=== PATIENT | male | born 1970 | race Hispanic/Latino ===

== ENCOUNTER 2020-04-30 15:14 | Inpatient (IN) | payer OTHER ==
[~2020-04-30] VITALS: Ht 165.1 cm; Wt 77.6 kg
[2020-04-30] MEDS ORDERED: LACTULOSE 20 GM/30 ML UDCUP PO PRN (16:00)
[2020-04-30] MEDS ORDERED: MAG/ALUM/SIMETH 30 ML UDCUP PO PRN (16:00)
[2020-04-30] MEDS ORDERED: ONDANSETRON 4MG INJ IVP PRN (16:00)
[2020-04-30] MEDS: ZOSYN 3.375GM+NS 50ML 50 ML IV SCH (16:00)
[2020-04-30] MEDS ORDERED: VANCOMYCIN PROTOCOL PER PHARMACY IV SCH (16:00)
[2020-04-30] MEDS ORDERED: GUAIFENESIN-DM 200/20 MG 10 ML PO PRN (16:00)
[2020-04-30 16:10] LABS: BASOPHILS % (AUTO) 0.2 % (0.0-5.0); EOSINOPHILS % (AUTO) 0.8 % (0.0-8.0); HEMATOCRIT 31.6 % (42-54); LYMPHOCYTES % (AUTO) 2.2 % (21.0-51.0); MEAN CORPUSCULAR HEMOGLOBIN 30.3 pg (27.0-33.0); MEAN CORPUSCULAR HGB CONC 33.5 g/dL (32.0-36.0); MEAN CORPUSCULAR VOLUME 90.3 fL (79-99); MONOCYTES % (AUTO) 3.8 % (3.0-13.0); NEUTROPHILS % (AUTO) 92.5 % (40.0-77.0); PLATELET COUNT (AUTO) 181 K/uL (130-400); RED CELL DISTRIBUTION WIDTH 13.1 % (11.0-15.5); WHITE BLOOD COUNT (AUTO) 21.1 K/uL (4.8-10.8)
[2020-04-30] MEDS ORDERED: DEXTROSE 50%-WATER 50 ML DISP.SYRIN IV PRN (16:15)
[2020-04-30] MEDS ORDERED: GLUCAGON 1MG KIT 1 MG ML IM PRN (16:15)
[2020-04-30] MEDS ORDERED: ZOSYN 3.375GM+NS 50ML 50 ML IV ONE (16:28)
[2020-04-30] MEDS ORDERED: VANCOMYCIN 1G 1.5 GM in 0.9% NACL 250ML 250 ML IV ONE (16:30)
[2020-04-30] MEDS: INSULIN HUMULIN R 100 UNIT/ML 3ML SQ SCH ×2 (16:30→21:00)
[2020-04-30 16:39] LABS: ALBUMIN 2.6 g/dL (3.5-5.0); BILIRUBIN,TOTAL 0.9 mg/dL (0.2-1.0); CREATININE 4.2 mg/dL (0.5-1.5); POTASSIUM 3.6 mmol/L (3.5-5.1); TOTAL PROTEIN, SERUM 8.4 g/dL (6.0-8.3)
[2020-04-30] MEDS ORDERED: ACETAMINOPHEN 325 MG TAB ONE (18:35)
[2020-04-30] MEDS ORDERED: HEPARIN 5,000 UNIT VIAL ONE (20:05)
[2020-04-30] MEDS ORDERED: FAMOTIDINE 20MG TAB ONE (20:05)
[2020-04-30] MEDS ORDERED: HEPARIN 5,000 UNIT VIAL SQ SCH (21:00)
[2020-04-30] MEDS: FAMOTIDINE 20MG TAB PO SCH (21:00)
[2020-04-30 22:35] VITALS: BP 117/58
[2020-04-30] MEDS ORDERED: TEMA30CA PO (22:50)
[2020-04-30] MEDS ORDERED: METO-408 PO (22:50)
[2020-04-30] MEDS ORDERED: ROSU20TA31 PO (22:50)
[2020-04-30] MEDS ORDERED: GABA-533 PO (22:50)
[2020-04-30] MEDS ORDERED: AEC81 PO (22:50)
[2020-04-30] MEDS ORDERED: CHOL500045 PO (22:50)
[2020-04-30] MEDS ORDERED: CLOP75TA32 PO (22:50)
[2020-04-30] MEDS ORDERED: FURO80TA3 PO (22:50)
[2020-04-30] MEDS ORDERED: HYDR-4153 PO (22:50)
[2020-04-30] MEDS ORDERED: LEVO25CA4 PO (22:50)
[2020-05-01 04:09] VITALS: BP 146/62
[2020-05-01] MEDS: ZOSYN 3.375GM+NS 50ML 50 ML IV SCH ×2 (04:42→17:30)
[2020-05-01] MEDS: INSULIN HUMULIN R 100 UNIT/ML 3ML SQ SCH ×4 (06:40→23:30)
[2020-05-01] MEDS: HEPARIN 5,000 UNIT VIAL SQ SCH ×2 (09:57→21:08)
[2020-05-01 11:51] VITALS: BP 162/75
[2020-05-01] MEDS ORDERED: HEPARIN 5,000 UNIT VIAL IJ PRN (15:15)
[2020-05-01] MEDS ORDERED: NITROGLYCERIN 0.4 MG SL TAB SL PRN (15:15)
[2020-05-01] MEDS ORDERED: ACETAMINOPHEN 325 MG TAB PO PRN (15:15)
[2020-05-01] MEDS ORDERED: ALBUMIN FOR BP SUPPORT MISC PRN (15:15)
[2020-05-01] MEDS ORDERED: LIDOCAINE HCL-MPF 1% 2ML VIAL IJ PRN (15:15)
[2020-05-01] MEDS ORDERED: 0.9%NACL 1000ML IV PRN (15:15)
[2020-05-01] MEDS ORDERED: 0.9%NACL 1000ML 1,000 ML IV PRN (15:15)
[2020-05-01 16:19] VITALS: BP 161/87
[2020-05-01] MEDS: ASPIRIN 81 MG EC TAB PO SCH (17:30)
[2020-05-01] MEDS: GABAPENTIN 300 MG CAPSULE PO SCH ×2 (17:32→20:59)
[2020-05-01] MEDS ORDERED: VANCOMYCIN 1G 1.5 GM in 0.9% NACL 250ML 250 ML IV SCH (19:30)
[2020-05-01 19:33] VITALS: BP 142/70
[2020-05-01] MEDS ORDERED: COMPOUND IV REFRIGERATED 1 EACH IVSOLN MISC PRN (19:45)
[2020-05-01] MEDS: FAMOTIDINE 20MG TAB PO SCH (20:59)
[2020-05-01] MEDS: CLOPIDOGREL 75MG TAB PO SCH (20:59)
[2020-05-01] MEDS: GABAPENTIN 100 MG CAPSULE PO SCH (20:59)
[2020-05-01] MEDS: METOPROLOL SUCCINATE 50 MG TAB.SR.24H PO SCH (21:00)
[2020-05-01] MEDS: HYDRALAZINE 25MG TABLET PO SCH (21:00)
[2020-05-01] MEDS: ATORVASTATIN 40 MG TABLET PO SCH (21:00)
[2020-05-01] MEDS: ZOLPIDEM TARTRATE 5 MG TAB PO PRN (23:27)
[2020-05-02] VITALS: BP 119/68
[2020-05-02 03:46] LABS: BASOPHILS % (AUTO) 0.6 % (0.0-5.0); EOSINOPHILS % (AUTO) 1.5 % (0.0-8.0); HEMATOCRIT 28.7 % (42-54); LYMPHOCYTES % (AUTO) 16.3 % (21.0-51.0); MEAN CORPUSCULAR HEMOGLOBIN 29.8 pg (27.0-33.0); MEAN CORPUSCULAR HGB CONC 33.1 g/dL (32.0-36.0); MONOCYTES % (AUTO) 11.1 % (3.0-13.0); NEUTROPHILS % (AUTO) 70.2 % (40.0-77.0); PLATELET COUNT (AUTO) 181 K/uL (130-400); RED BLOOD CELL COUNT(AUTO) 3.19 MIL/uL (4.50-6.20); RED CELL DISTRIBUTION WIDTH 12.9 % (11.0-15.5); WHITE BLOOD COUNT (AUTO) 9.3 K/uL (4.8-10.8)
[2020-05-02] MEDS: ZOSYN 3.375GM+NS 50ML 50 ML IV SCH ×2 (03:48→16:37)
[2020-05-02 04:00] VITALS: BP 127/64
[2020-05-02 04:11] LABS: ALBUMIN 2.1 g/dL (3.5-5.0); BILIRUBIN,TOTAL 0.5 mg/dL (0.2-1.0); CREATININE 4.2 mg/dL (0.5-1.5); TOTAL PROTEIN, SERUM 7.4 g/dL (6.0-8.3)
[2020-05-02 04:25] LABS: POTASSIUM 2.9 mmol/L (3.5-5.1)
[2020-05-02] MEDS ORDERED: KCL 20 MEQ ERTAB PO SCH ×2 (05:45→11:30)
[2020-05-02] MEDS: LEVOTHYROXINE 25 MCG TABLET PO SCH (06:39)
[2020-05-02] MEDS: INSULIN HUMULIN R 100 UNIT/ML 3ML SQ SCH ×4 (06:40→22:14)
[2020-05-02 08:00] VITALS: BP 132/70
[2020-05-02] MEDS: GABAPENTIN 100 MG CAPSULE PO SCH ×3 (09:00→21:34)
[2020-05-02] MEDS: VITAMIN D3 PO SCH (09:00)
[2020-05-02] MEDS: HEPARIN 5,000 UNIT VIAL SQ SCH (09:00)
[2020-05-02] MEDS: ASPIRIN 81 MG EC TAB PO SCH (09:00)
[2020-05-02] MEDS: GABAPENTIN 300 MG CAPSULE PO SCH ×3 (09:00→21:35)
[2020-05-02] MEDS: METOPROLOL SUCCINATE 50 MG TAB.SR.24H PO SCH ×2 (09:00→21:35)
[2020-05-02] MEDS ORDERED: DiphenhydrAMINE HCL 50 MG/ML VIAL ONE (09:44)
[2020-05-02] MEDS ORDERED: FENTANYL CITRATE PF 50 MCG/1 ML 2ML VIAL ONE (09:45)
[2020-05-02] MEDS ORDERED: MIDAZOLAM HCL 1 MG/ML 2ML VIAL ONE (09:45)
[2020-05-02] MEDS ORDERED: HEPARIN 10,000 UNIT/10ML (1,000 UNIT/ML) VIAL ONE (09:45)
[2020-05-02] MEDS ORDERED: NITROGLYCERIN 2 MG VIAL IV ONE (09:45)
[2020-05-02] MEDS ORDERED: LIDOCAINE HCL 400MG/20ML VIAL ONE (09:45)
[2020-05-02] MEDS ORDERED: IODIXANOL 320 MG/ML 100 ML VIAL ONE (09:46)
[2020-05-02 10:16] LABS: INR 1.08 (0.85-1.15); PROTHROMBIN TIME 11.7 SEC (9.6-11.6)
[2020-05-02 10:18] LABS: PARTIAL THROMBOPLASTIN TIME 27.2 SEC (26.3-35.5)
[2020-05-02] MEDS ORDERED: KCL 20 MEQ ERTAB PO ONE (10:33)
[2020-05-02] MEDS ORDERED: DiphenhydrAMINE HCL 50 MG/ML VIAL IV SCH (10:40)
[2020-05-02] MEDS ORDERED: HEPARIN 1,000 UNIT VIAL ONE ×2 (10:49→14:23)
[2020-05-02 11:12] LABS: HEPATITIS Bs ANTIGEN SCREEN P Negative (Negative)
[2020-05-02] MEDS ORDERED: TICAGRELOR 90 MG TABLET ONE (11:38)
[2020-05-02] MEDS ORDERED: ASPIRIN 325MG EC TAB PO ONE (11:39)
[2020-05-02] MEDS ORDERED: 0.9%NACL 1000ML 1,000 ML IV SCH (12:00)
[2020-05-02] MEDS ORDERED: LIDOCAINE HCL 1% MDV 50ML VIAL ONE (14:23)
[2020-05-02 16:18] VITALS: BP 155/81
[2020-05-02 19:37] LABS: ALBUMIN 2.1 g/dL (3.5-5.0); CREATININE 4.7 mg/dL (0.5-1.5); PHOSPHORUS 4.7 mg/dL (2.5-4.9); POTASSIUM 3.7 mmol/L (3.5-5.1)
[2020-05-02 20:00] VITALS: BP 127/66
[2020-05-02] MEDS: FAMOTIDINE 20MG TAB PO SCH (21:34)
[2020-05-02] MEDS: ATORVASTATIN 40 MG TABLET PO SCH (21:34)
[2020-05-02] MEDS: CLOPIDOGREL 75MG TAB PO SCH (21:35)
[2020-05-02] MEDS: HYDRALAZINE 25MG TABLET PO SCH (21:35)
[2020-05-02] MEDS: ZOLPIDEM TARTRATE 5 MG TAB PO PRN (21:48)
[2020-05-02 23:48] VITALS: BP 169/81
[2020-05-03 04:00] VITALS: BP 143/68
[2020-05-03 05:12] LABS: BASOPHILS % (AUTO) 0.7 % (0.0-5.0); EOSINOPHILS % (AUTO) 2.8 % (0.0-8.0); HEMATOCRIT 31.4 % (42-54); LYMPHOCYTES % (AUTO) 17.7 % (21.0-51.0); MEAN CORPUSCULAR HEMOGLOBIN 30.1 pg (27.0-33.0); MEAN CORPUSCULAR HGB CONC 32.8 g/dL (32.0-36.0); MEAN CORPUSCULAR VOLUME 91.8 fL (79-99); MONOCYTES % (AUTO) 10.8 % (3.0-13.0); NEUTROPHILS % (AUTO) 67.7 % (40.0-77.0); PLATELET COUNT (AUTO) 218 K/uL (130-400); RED BLOOD CELL COUNT(AUTO) 3.42 MIL/uL (4.50-6.20); WHITE BLOOD COUNT (AUTO) 9.6 K/uL (4.8-10.8)
[2020-05-03 05:45] LABS: ALBUMIN 2.3 g/dL (3.5-5.0); BILIRUBIN,TOTAL 0.5 mg/dL (0.2-1.0); CREATININE 5.1 mg/dL (0.5-1.5); TOTAL PROTEIN, SERUM 8.1 g/dL (6.0-8.3)
[2020-05-03] MEDS: ZOSYN 3.375GM+NS 50ML 50 ML IV SCH ×2 (05:45→16:04)
[2020-05-03] MEDS: LEVOTHYROXINE 25 MCG TABLET PO SCH (05:45)
[2020-05-03] MEDS: INSULIN HUMULIN R 100 UNIT/ML 3ML SQ SCH ×4 (06:24→20:47)
[2020-05-03 08:00] VITALS: BP 142/68
[2020-05-03] MEDS: VITAMIN D3 PO SCH (09:00)
[2020-05-03] MEDS: GABAPENTIN 300 MG CAPSULE PO SCH ×3 (10:02→20:49)
[2020-05-03] MEDS: ASPIRIN 81 MG EC TAB PO SCH (10:02)
[2020-05-03] MEDS: METOPROLOL SUCCINATE 50 MG TAB.SR.24H PO SCH ×2 (10:02→20:49)
[2020-05-03] MEDS: GABAPENTIN 100 MG CAPSULE PO SCH ×3 (10:02→20:52)
[2020-05-03 11:52] VITALS: BP 147/68
[2020-05-03 16:51] VITALS: BP 122/64
[2020-05-03 19:42] VITALS: BP 128/70
[2020-05-03] MEDS: ATORVASTATIN 40 MG TABLET PO SCH (20:49)
[2020-05-03] MEDS: CLOPIDOGREL 75MG TAB PO SCH (20:49)
[2020-05-03] MEDS: FAMOTIDINE 20MG TAB PO SCH (20:49)
[2020-05-03] MEDS: HYDRALAZINE 25MG TABLET PO SCH (20:50)
[2020-05-03] MEDS: ZOLPIDEM TARTRATE 5 MG TAB PO PRN (20:52)
[2020-05-03] MEDS: VANCOMYCIN 1G 1.25 GM in 0.9% NACL 250ML 250 ML IV SCH (20:53)
[2020-05-03 23:43] VITALS: BP 124/47
[2020-05-04] VITALS (19 sets, daily range): BP systolic 106–161; BP diastolic 45–79
[2020-05-04] MEDS: ZOSYN 3.375GM+NS 50ML 50 ML IV SCH ×2 (04:11→16:24)
[2020-05-04] MEDS: INSULIN HUMULIN R 100 UNIT/ML 3ML SQ SCH ×4 (05:39→20:48)
[2020-05-04] MEDS: LEVOTHYROXINE 25 MCG TABLET PO SCH (05:59)
[2020-05-04 06:02] LABS: BASOPHILS % (AUTO) 0.5 % (0.0-5.0); EOSINOPHILS % (AUTO) 3.6 % (0.0-8.0); HEMATOCRIT 26.5 % (42-54); LYMPHOCYTES % (AUTO) 19.6 % (21.0-51.0); MEAN CORPUSCULAR HGB CONC 32.8 g/dL (32.0-36.0); MEAN CORPUSCULAR VOLUME 91.4 fL (79-99); MONOCYTES % (AUTO) 8.7 % (3.0-13.0); NEUTROPHILS % (AUTO) 67.3 % (40.0-77.0); PLATELET COUNT (AUTO) 175 K/uL (130-400); RED CELL DISTRIBUTION WIDTH 12.8 % (11.0-15.5); WHITE BLOOD COUNT (AUTO) 7.8 K/uL (4.8-10.8)
[2020-05-04 06:19] LABS: BILIRUBIN,TOTAL 0.5 mg/dL (0.2-1.0); CREATININE 4.5 mg/dL (0.5-1.5); POTASSIUM 3.3 mmol/L (3.5-5.1)
[2020-05-04] MEDS ORDERED: MIDAZOLAM HCL 1 MG/ML 2ML VIAL ONE (07:26)
[2020-05-04] MEDS ORDERED: FENTANYL CITRATE PF 50 MCG/1 ML 2ML VIAL ONE (07:26)
[2020-05-04] MEDS ORDERED: BUPIVACAINE/PF 0.5% 30ML VIAL ONE (07:29)
[2020-05-04] MEDS ORDERED: LIDOCAINE HCL 1% 20 ML VIAL ONE (07:29)
[2020-05-04] MEDS ORDERED: KETAMINE 50MG/ML SYRINGE 50 MG/ML DISP.SYRIN IV ONE (07:30)
[2020-05-04] MEDS: VITAMIN D3 PO SCH (09:00)
[2020-05-04] MEDS: GABAPENTIN 300 MG CAPSULE PO SCH ×3 (10:20→20:44)
[2020-05-04] MEDS: METOPROLOL SUCCINATE 50 MG TAB.SR.24H PO SCH ×2 (10:20→20:45)
[2020-05-04] MEDS: GABAPENTIN 100 MG CAPSULE PO SCH ×3 (10:21→20:45)
[2020-05-04] MEDS: ASPIRIN 81 MG EC TAB PO SCH (10:21)
[2020-05-04] MEDS: CLOPIDOGREL 75MG TAB PO SCH (20:44)
[2020-05-04] MEDS: HYDRALAZINE 25MG TABLET PO SCH (20:45)
[2020-05-04] MEDS: ATORVASTATIN 40 MG TABLET PO SCH (20:45)
[2020-05-04] MEDS: FAMOTIDINE 20MG TAB PO SCH (20:45)
[2020-05-04] MEDS: ZOLPIDEM TARTRATE 5 MG TAB PO PRN (20:55)
[2020-05-04] MEDS ORDERED: MORPHINE 2 MG SYG IVP PRN (22:45)
[2020-05-04] MEDS ORDERED: HYDROMORPHONE 1 MG INJ IVP PRN (22:45)
[2020-05-05] MEDS: ZOSYN 3.375GM+NS 50ML 50 ML IV SCH ×2 (03:56→15:24)
[2020-05-05 04:21] VITALS: BP 133/63
[2020-05-05] MEDS: INSULIN HUMULIN R 100 UNIT/ML 3ML SQ SCH ×4 (05:58→20:49)
[2020-05-05] MEDS: LEVOTHYROXINE 25 MCG TABLET PO SCH (06:45)
[2020-05-05 07:50] VITALS: BP 127/62
[2020-05-05] MEDS: ASPIRIN 81 MG EC TAB PO SCH (07:56)
[2020-05-05] MEDS: METOPROLOL SUCCINATE 50 MG TAB.SR.24H PO SCH ×2 (07:56→20:45)
[2020-05-05] MEDS: GABAPENTIN 100 MG CAPSULE PO SCH ×3 (07:57→20:40)
[2020-05-05] MEDS: GABAPENTIN 300 MG CAPSULE PO SCH ×3 (07:57→20:39)
[2020-05-05] MEDS: VITAMIN D3 PO SCH (07:58)
[2020-05-05 12:07] VITALS: BP 153/72
[2020-05-05 16:43] VITALS: BP 162/69
[2020-05-05 20:20] VITALS: BP 144/63
[2020-05-05] MEDS: VANCOMYCIN 1G 1.25 GM in 0.9% NACL 250ML 250 ML IV SCH (20:39)
[2020-05-05] MEDS: HYDRALAZINE 25MG TABLET PO SCH (20:40)
[2020-05-05] MEDS: ACETAMINOPHEN 325 MG TAB PO PRN (20:44)
[2020-05-05] MEDS: CLOPIDOGREL 75MG TAB PO SCH (20:44)
[2020-05-05] MEDS: FAMOTIDINE 20MG TAB PO SCH (20:45)
[2020-05-05] MEDS ORDERED: POTASSIUM CHLORIDE 10% ELIXIR 20 MEQ/15 ML UDCUP PO PRN (20:45)
[2020-05-05] MEDS: ATORVASTATIN 40 MG TABLET PO SCH (20:45)
[2020-05-05] MEDS ORDERED: POTASSIUM CHLORIDE 20MEQ/100ML 100 ML IV PRN ×2 (20:45)
[2020-05-05] MEDS: ZOLPIDEM TARTRATE 5 MG TAB PO PRN (21:01)
[2020-05-05 23:46] VITALS: BP 112/61
[2020-05-06] MEDS: KCL 20 MEQ ERTAB PO PRN ×2 (00:31→02:39)
[2020-05-06 03:57] VITALS: BP 148/78
[2020-05-06] MEDS: ZOSYN 3.375GM+NS 50ML 50 ML IV SCH ×2 (05:40→15:19)
[2020-05-06] MEDS: LEVOTHYROXINE 25 MCG TABLET PO SCH (05:47)
[2020-05-06] MEDS: INSULIN HUMULIN R 100 UNIT/ML 3ML SQ SCH ×4 (05:50→20:43)
[2020-05-06 08:25] VITALS: BP 139/79
[2020-05-06] MEDS: METOPROLOL SUCCINATE 50 MG TAB.SR.24H PO SCH ×2 (09:00→20:34)
[2020-05-06] MEDS: GABAPENTIN 100 MG CAPSULE PO SCH ×3 (09:00→20:33)
[2020-05-06] MEDS: GABAPENTIN 300 MG CAPSULE PO SCH ×3 (09:00→20:33)
[2020-05-06] MEDS: VITAMIN D3 PO SCH (09:00)
[2020-05-06] MEDS: ASPIRIN 81 MG EC TAB PO SCH (09:00)
[2020-05-06 12:03] VITALS: BP 127/73
[2020-05-06 16:57] VITALS: BP 132/81
[2020-05-06 20:00] VITALS: BP 137/66
[2020-05-06] MEDS: ATORVASTATIN 40 MG TABLET PO SCH (20:33)
[2020-05-06] MEDS: HYDRALAZINE 25MG TABLET PO SCH (20:33)
[2020-05-06] MEDS: FAMOTIDINE 20MG TAB PO SCH (20:34)
[2020-05-06] MEDS: CLOPIDOGREL 75MG TAB PO SCH (20:34)
[2020-05-06] MEDS: ZOLPIDEM TARTRATE 5 MG TAB PO PRN (20:37)
[2020-05-07 00:04] VITALS: BP 125/58
[2020-05-07 04:00] VITALS: BP 130/62
[2020-05-07] MEDS: LEVOTHYROXINE 25 MCG TABLET PO SCH (05:37)
[2020-05-07] MEDS: ZOSYN 3.375GM+NS 50ML 50 ML IV SCH ×2 (05:37→15:02)
[2020-05-07] MEDS: INSULIN HUMULIN R 100 UNIT/ML 3ML SQ SCH ×4 (07:30→21:22)
[2020-05-07] MEDS: VITAMIN D3 PO SCH (09:00)
[2020-05-07 09:03] VITALS: BP 139/63
[2020-05-07] MEDS: ASPIRIN 81 MG EC TAB PO SCH (10:15)
[2020-05-07] MEDS: GABAPENTIN 300 MG CAPSULE PO SCH ×3 (10:15→21:07)
[2020-05-07] MEDS: METOPROLOL SUCCINATE 50 MG TAB.SR.24H PO SCH ×2 (10:16→21:06)
[2020-05-07] MEDS: GABAPENTIN 100 MG CAPSULE PO SCH ×3 (10:16→21:07)
[2020-05-07 12:15] VITALS: BP 142/64
[2020-05-07] MEDS: ACETAMINOPHEN 325 MG TAB PO PRN (16:17)
[2020-05-07 17:16] VITALS: BP 158/71
[2020-05-07 20:00] VITALS: BP 145/63
[2020-05-07] MEDS: ZOLPIDEM TARTRATE 5 MG TAB PO PRN (21:06)
[2020-05-07] MEDS: FAMOTIDINE 20MG TAB PO SCH (21:07)
[2020-05-07] MEDS: CLOPIDOGREL 75MG TAB PO SCH (21:07)
[2020-05-07] MEDS: ATORVASTATIN 40 MG TABLET PO SCH (21:07)
[2020-05-07] MEDS: HYDRALAZINE 25MG TABLET PO SCH (21:07)
[2020-05-07] MEDS: VANCOMYCIN 1G 1.25 GM in 0.9% NACL 250ML 250 ML IV SCH (21:08)
[2020-05-08] VITALS: BP 149/59
[2020-05-08 04:00] VITALS: BP 127/64
[2020-05-08] MEDS: ZOSYN 3.375GM+NS 50ML 50 ML IV SCH ×2 (06:29→15:11)
[2020-05-08] MEDS: LEVOTHYROXINE 25 MCG TABLET PO SCH (06:29)
[2020-05-08 06:49] LABS: BASOPHILS % (AUTO) 0.4 % (0.0-5.0); EOSINOPHILS % (AUTO) 4.6 % (0.0-8.0); HEMATOCRIT 23.1 % (42-54); LYMPHOCYTES % (AUTO) 18.6 % (21.0-51.0); MEAN CORPUSCULAR HEMOGLOBIN 29.2 pg (27.0-33.0); MEAN CORPUSCULAR VOLUME 91.3 fL (79-99); MONOCYTES % (AUTO) 6.7 % (3.0-13.0); NEUTROPHILS % (AUTO) 69.2 % (40.0-77.0); PLATELET COUNT (AUTO) 204 K/uL (130-400); RED BLOOD CELL COUNT(AUTO) 2.53 MIL/uL (4.50-6.20); RED CELL DISTRIBUTION WIDTH 13.6 % (11.0-15.5); WHITE BLOOD COUNT (AUTO) 8.3 K/uL (4.8-10.8)
[2020-05-08 06:58] LABS: CREATININE 4.3 mg/dL (0.5-1.5); POTASSIUM 3.4 mmol/L (3.5-5.1)
[2020-05-08] MEDS: INSULIN HUMULIN R 100 UNIT/ML 3ML SQ SCH ×4 (07:30→21:06)
[2020-05-08 07:58] VITALS: BP 137/66
[2020-05-08] MEDS: ASPIRIN 81 MG EC TAB PO SCH (09:00)
[2020-05-08] MEDS: VITAMIN D3 PO SCH (09:00)
[2020-05-08] MEDS: GABAPENTIN 300 MG CAPSULE PO SCH ×3 (09:00→21:01)
[2020-05-08] MEDS: METOPROLOL SUCCINATE 50 MG TAB.SR.24H PO SCH ×2 (09:00→21:02)
[2020-05-08] MEDS: GABAPENTIN 100 MG CAPSULE PO SCH ×3 (09:00→21:01)
[2020-05-08 11:07] VITALS: BP 112/62
[2020-05-08 16:24] VITALS: BP 149/75
[2020-05-08 19:54] VITALS: BP 150/64
[2020-05-08] MEDS: FAMOTIDINE 20MG TAB PO SCH (21:01)
[2020-05-08] MEDS: HYDRALAZINE 25MG TABLET PO SCH (21:01)
[2020-05-08] MEDS: CLOPIDOGREL 75MG TAB PO SCH (21:02)
[2020-05-08] MEDS: ZOLPIDEM TARTRATE 5 MG TAB PO PRN (21:02)
[2020-05-08] MEDS: ATORVASTATIN 40 MG TABLET PO SCH (21:10)
[2020-05-09] VITALS (7 sets, daily range): BP systolic 105–140; BP diastolic 58–73
[2020-05-09] MEDS: ZOSYN 3.375GM+NS 50ML 50 ML IV SCH ×2 (03:51→15:08)
[2020-05-09] MEDS: LEVOTHYROXINE 25 MCG TABLET PO SCH ×2 (03:51→20:47)
[2020-05-09] MEDS: INSULIN HUMULIN R 100 UNIT/ML 3ML SQ SCH ×4 (06:06→21:02)
[2020-05-09] MEDS: GABAPENTIN 300 MG CAPSULE PO SCH ×3 (08:59→20:43)
[2020-05-09] MEDS: METOPROLOL SUCCINATE 50 MG TAB.SR.24H PO SCH ×2 (09:00→20:44)
[2020-05-09] MEDS: GABAPENTIN 100 MG CAPSULE PO SCH ×3 (09:00→20:43)
[2020-05-09] MEDS: ASPIRIN 81 MG EC TAB PO SCH (09:00)
[2020-05-09] MEDS: VITAMIN D3 PO SCH (09:00)
[2020-05-09] MEDS: ATORVASTATIN 40 MG TABLET PO SCH (20:43)
[2020-05-09] MEDS: CLOPIDOGREL 75MG TAB PO SCH (20:43)
[2020-05-09] MEDS: HYDRALAZINE 25MG TABLET PO SCH (20:43)
[2020-05-09] MEDS: FAMOTIDINE 20MG TAB PO SCH (20:44)
[2020-05-09] MEDS: ZOLPIDEM TARTRATE 5 MG TAB PO PRN (20:44)
[2020-05-10] VITALS (11 sets, daily range): BP systolic 125–163; BP diastolic 45–108
[2020-05-10] MEDS: ZOSYN 3.375GM+NS 50ML 50 ML IV SCH ×2 (04:02→17:14)
[2020-05-10 05:40] LABS: HEMATOCRIT 22.8 % (42-54); MEAN CORPUSCULAR HEMOGLOBIN 29.1 pg (27.0-33.0); MEAN CORPUSCULAR HGB CONC 31.6 g/dL (32.0-36.0); MEAN CORPUSCULAR VOLUME 92.3 fL (79-99); RED BLOOD CELL COUNT(AUTO) 2.47 MIL/uL (4.50-6.20); RED CELL DISTRIBUTION WIDTH 13.4 % (11.0-15.5); WHITE BLOOD COUNT (AUTO) 7.3 K/uL (4.8-10.8)
[2020-05-10] MEDS: INSULIN HUMULIN R 100 UNIT/ML 3ML SQ SCH ×4 (06:05→20:16)
[2020-05-10 06:15] LABS: CREATININE 3.6 mg/dL (0.5-1.5); POTASSIUM 3.7 mmol/L (3.5-5.1)
[2020-05-10] MEDS: METOPROLOL SUCCINATE 50 MG TAB.SR.24H PO SCH ×2 (08:41→19:58)
[2020-05-10] MEDS: GABAPENTIN 100 MG CAPSULE PO SCH ×3 (08:41→19:58)
[2020-05-10] MEDS: GABAPENTIN 300 MG CAPSULE PO SCH ×3 (08:42→19:58)
[2020-05-10] MEDS: LEVOTHYROXINE 25 MCG TABLET PO SCH (08:46)
[2020-05-10] MEDS: ASPIRIN 81 MG EC TAB PO SCH (09:00)
[2020-05-10] MEDS: VITAMIN D3 PO SCH (09:00)
[2020-05-10] MEDS ORDERED: HEPARIN 1,000 UNIT VIAL ONE (12:09)
[2020-05-10] MEDS ORDERED: LIDOCAINE HCL 1% MDV 50ML VIAL ONE (12:10)
[2020-05-10] MEDS: VANCOMYCIN 1G 1.25 GM in 0.9% NACL 250ML 250 ML IV SCH (15:59)
[2020-05-10] MEDS: HEPARIN 5,000 UNIT VIAL IJ PRN (17:14)
[2020-05-10] MEDS: CLOPIDOGREL 75MG TAB PO SCH (19:58)
[2020-05-10] MEDS: FAMOTIDINE 20MG TAB PO SCH (19:58)
[2020-05-10] MEDS: ZOLPIDEM TARTRATE 5 MG TAB PO PRN (19:58)
[2020-05-10] MEDS: ATORVASTATIN 40 MG TABLET PO SCH (19:59)
[2020-05-10] MEDS: HYDRALAZINE 25MG TABLET PO SCH (19:59)
[2020-05-11] VITALS (7 sets, daily range): BP systolic 127–148; BP diastolic 54–77
[2020-05-11] MEDS: ZOSYN 3.375GM+NS 50ML 50 ML IV SCH ×2 (04:07→17:01)
[2020-05-11] MEDS: LEVOTHYROXINE 25 MCG TABLET PO SCH ×2 (05:20→05:22)
[2020-05-11] MEDS: LEVOTHYROXINE 25 MCG TABLET ONE ×2 (05:20→05:21)
[2020-05-11] MEDS: INSULIN HUMULIN R 100 UNIT/ML 3ML SQ SCH ×4 (05:39→21:26)
[2020-05-11] MEDS: VITAMIN D3 PO SCH (09:00)
[2020-05-11] MEDS: GABAPENTIN 100 MG CAPSULE PO SCH ×3 (09:20→21:18)
[2020-05-11] MEDS: ASPIRIN 81 MG EC TAB PO SCH (09:20)
[2020-05-11] MEDS: GABAPENTIN 300 MG CAPSULE PO SCH ×3 (09:20→21:18)
[2020-05-11] MEDS: METOPROLOL SUCCINATE 50 MG TAB.SR.24H PO SCH ×2 (09:20→21:18)
[2020-05-11] MEDS: ZOLPIDEM TARTRATE 5 MG TAB PO PRN (21:17)
[2020-05-11] MEDS: HYDRALAZINE 25MG TABLET PO SCH (21:18)
[2020-05-11] MEDS: FAMOTIDINE 20MG TAB PO SCH (21:18)
[2020-05-11] MEDS: CLOPIDOGREL 75MG TAB PO SCH (21:18)
[2020-05-11] MEDS: ATORVASTATIN 40 MG TABLET PO SCH (21:19)
[2020-05-12 00:20] VITALS: BP 121/52
[2020-05-12 04:20] VITALS: BP 138/54
[2020-05-12 05:48] LABS: BASOPHILS % (AUTO) 0.3 % (0.0-5.0); EOSINOPHILS % (AUTO) 2.7 % (0.0-8.0); LYMPHOCYTES % (AUTO) 18.8 % (21.0-51.0); MEAN CORPUSCULAR HGB CONC 32.5 g/dL (32.0-36.0); MEAN CORPUSCULAR VOLUME 92.1 fL (79-99); MONOCYTES % (AUTO) 7.7 % (3.0-13.0); NEUTROPHILS % (AUTO) 70.1 % (40.0-77.0); PLATELET COUNT (AUTO) 188 K/uL (130-400); RED BLOOD CELL COUNT(AUTO) 2.27 MIL/uL (4.50-6.20); RED CELL DISTRIBUTION WIDTH 13.7 % (11.0-15.5); WHITE BLOOD COUNT (AUTO) 7.7 K/uL (4.8-10.8)
[2020-05-12 05:55] LABS: HEMATOCRIT 20.9 % (42-54)
[2020-05-12] MEDS: INSULIN HUMULIN R 100 UNIT/ML 3ML SQ SCH ×4 (06:02→20:43)
[2020-05-12 06:03] LABS: CREATININE 3.2 mg/dL (0.5-1.5); POTASSIUM 3.2 mmol/L (3.5-5.1)
[2020-05-12] MEDS: ZOSYN 3.375GM+NS 50ML 50 ML IV SCH ×2 (06:04→16:25)
[2020-05-12] MEDS: LEVOTHYROXINE 25 MCG TABLET PO SCH (06:05)
[2020-05-12 06:49] LABS: HEMATOCRIT 21.6 % (42-54)
[2020-05-12] MEDS ORDERED: KCL 20 MEQ ERTAB PO SCH (08:00)
[2020-05-12] MEDS: VITAMIN D3 PO SCH (09:00)
[2020-05-12] MEDS: GABAPENTIN 300 MG CAPSULE PO SCH ×3 (09:02→20:38)
[2020-05-12] MEDS: GABAPENTIN 100 MG CAPSULE PO SCH ×3 (09:02→20:46)
[2020-05-12] MEDS: ASPIRIN 81 MG EC TAB PO SCH (09:03)
[2020-05-12] MEDS: METOPROLOL SUCCINATE 50 MG TAB.SR.24H PO SCH ×2 (09:04→20:39)
[2020-05-12 09:31] VITALS: BP 140/71
[2020-05-12] MEDS ORDERED: 0.9% NACL 250ML 250 ML IV ONE (10:59)
[2020-05-12] MEDS: ACETAMINOPHEN 325 MG TAB PO PRN (12:15)
[2020-05-12 16:43] VITALS: BP 152/76
[2020-05-12 20:20] VITALS: BP 176/79
[2020-05-12] MEDS: FAMOTIDINE 20MG TAB PO SCH (20:38)
[2020-05-12] MEDS: CLOPIDOGREL 75MG TAB PO SCH (20:39)
[2020-05-12] MEDS: HYDRALAZINE 25MG TABLET PO SCH (20:39)
[2020-05-12] MEDS: ATORVASTATIN 40 MG TABLET PO SCH (20:39)
[2020-05-12] MEDS: ZOLPIDEM TARTRATE 5 MG TAB PO PRN (20:46)
[2020-05-13] VITALS (7 sets, daily range): BP systolic 147–161; BP diastolic 67–81
[2020-05-13] MEDS: ZOSYN 3.375GM+NS 50ML 50 ML IV SCH ×2 (03:38→16:55)
[2020-05-13] MEDS: INSULIN HUMULIN R 100 UNIT/ML 3ML SQ SCH ×4 (05:12→21:36)
[2020-05-13] MEDS: LEVOTHYROXINE 25 MCG TABLET PO SCH (05:35)
[2020-05-13 06:03] LABS: BASOPHILS % (AUTO) 0.4 % (0.0-5.0); HEMATOCRIT 24.8 % (42-54); LYMPHOCYTES % (AUTO) 16.3 % (21.0-51.0); MEAN CORPUSCULAR HEMOGLOBIN 30.1 pg (27.0-33.0); MEAN CORPUSCULAR HGB CONC 32.3 g/dL (32.0-36.0); MEAN CORPUSCULAR VOLUME 93.2 fL (79-99); NEUTROPHILS % (AUTO) 72.9 % (40.0-77.0); PLATELET COUNT (AUTO) 201 K/uL (130-400); RED BLOOD CELL COUNT(AUTO) 2.66 MIL/uL (4.50-6.20); WHITE BLOOD COUNT (AUTO) 8.1 K/uL (4.8-10.8)
[2020-05-13 06:16] LABS: CREATININE 3.3 mg/dL (0.5-1.5); POTASSIUM 3.7 mmol/L (3.5-5.1)
[2020-05-13] MEDS: METOPROLOL SUCCINATE 50 MG TAB.SR.24H PO SCH ×2 (09:00→21:30)
[2020-05-13] MEDS: VITAMIN D3 PO SCH (10:00)
[2020-05-13] MEDS: GABAPENTIN 300 MG CAPSULE PO SCH ×3 (10:00→21:31)
[2020-05-13] MEDS: GABAPENTIN 100 MG CAPSULE PO SCH ×3 (10:00→21:31)
[2020-05-13] MEDS: ASPIRIN 81 MG EC TAB PO SCH (10:00)
[2020-05-13] MEDS: HEPARIN 5,000 UNIT VIAL IJ PRN ×2 (13:46→13:49)
[2020-05-13] MEDS: VANCOMYCIN 1G 1.25 GM in 0.9% NACL 250ML 250 ML IV SCH (14:16)
[2020-05-13] MEDS: CLOPIDOGREL 75MG TAB PO SCH (21:30)
[2020-05-13] MEDS: FAMOTIDINE 20MG TAB PO SCH (21:30)
[2020-05-13] MEDS: ATORVASTATIN 40 MG TABLET PO SCH (21:31)
[2020-05-13] MEDS: HYDRALAZINE 25MG TABLET PO SCH (21:31)
[2020-05-13] MEDS: ZOLPIDEM TARTRATE 5 MG TAB PO PRN (21:42)
[2020-05-14] MEDS: ZOSYN 3.375GM+NS 50ML 50 ML IV SCH (03:38)
[2020-05-14 04:19] VITALS: BP 132/69
[2020-05-14 05:42] LABS: BASOPHILS % (AUTO) 0.5 % (0.0-5.0); EOSINOPHILS % (AUTO) 3.4 % (0.0-8.0); HEMATOCRIT 26.1 % (42-54); LYMPHOCYTES % (AUTO) 17.9 % (21.0-51.0); MEAN CORPUSCULAR HEMOGLOBIN 28.9 pg (27.0-33.0); MEAN CORPUSCULAR HGB CONC 31.8 g/dL (32.0-36.0); MEAN CORPUSCULAR VOLUME 90.9 fL (79-99); MONOCYTES % (AUTO) 8.5 % (3.0-13.0); NEUTROPHILS % (AUTO) 69.2 % (40.0-77.0); PLATELET COUNT (AUTO) 206 K/uL (130-400); RED BLOOD CELL COUNT(AUTO) 2.87 MIL/uL (4.50-6.20); RED CELL DISTRIBUTION WIDTH 13.7 % (11.0-15.5); WHITE BLOOD COUNT (AUTO) 8.2 K/uL (4.8-10.8)
[2020-05-14] MEDS: INSULIN HUMULIN R 100 UNIT/ML 3ML SQ SCH ×4 (05:57→21:53)
[2020-05-14] MEDS: LEVOTHYROXINE 25 MCG TABLET PO SCH (05:57)
[2020-05-14 06:01] LABS: ALBUMIN 1.8 g/dL (3.5-5.0); BILIRUBIN,TOTAL 0.5 mg/dL (0.2-1.0); CREATININE 2.9 mg/dL (0.5-1.5); POTASSIUM 3.7 mmol/L (3.5-5.1); TOTAL PROTEIN, SERUM 7.2 g/dL (6.0-8.3)
[2020-05-14 07:34] VITALS: BP 149/77
[2020-05-14] MEDS: ASPIRIN 81 MG EC TAB PO SCH (09:20)
[2020-05-14] MEDS: GABAPENTIN 300 MG CAPSULE PO SCH ×3 (09:21→21:46)
[2020-05-14] MEDS: METOPROLOL SUCCINATE 50 MG TAB.SR.24H PO SCH ×2 (09:21→21:44)
[2020-05-14] MEDS: VITAMIN D3 PO SCH (09:22)
[2020-05-14] MEDS: GABAPENTIN 100 MG CAPSULE PO SCH ×3 (09:22→21:44)
[2020-05-14 11:33] VITALS: BP 150/76
[2020-05-14 15:56] VITALS: BP 166/79
[2020-05-14 20:17] VITALS: BP 154/71
[2020-05-14] MEDS: ATORVASTATIN 40 MG TABLET PO SCH (21:44)
[2020-05-14] MEDS: HYDRALAZINE 25MG TABLET PO SCH (21:44)
[2020-05-14] MEDS: FAMOTIDINE 20MG TAB PO SCH (21:45)
[2020-05-14] MEDS: ZOLPIDEM TARTRATE 5 MG TAB PO PRN (21:45)
[2020-05-14] MEDS: CLOPIDOGREL 75MG TAB PO SCH (21:55)
[2020-05-14 23:35] VITALS: BP 144/66
[2020-05-15 04:08] VITALS: BP 136/65
[2020-05-15 05:26] LABS: BASOPHILS % (AUTO) 0.5 % (0.0-5.0); EOSINOPHILS % (AUTO) 3.9 % (0.0-8.0); HEMATOCRIT 24.1 % (42-54); MEAN CORPUSCULAR HEMOGLOBIN 29.7 pg (27.0-33.0); MEAN CORPUSCULAR HGB CONC 32.4 g/dL (32.0-36.0); MEAN CORPUSCULAR VOLUME 91.6 fL (79-99); MONOCYTES % (AUTO) 9.2 % (3.0-13.0); PLATELET COUNT (AUTO) 220 K/uL (130-400); RED BLOOD CELL COUNT(AUTO) 2.63 MIL/uL (4.50-6.20); RED CELL DISTRIBUTION WIDTH 13.8 % (11.0-15.5); WHITE BLOOD COUNT (AUTO) 7.5 K/uL (4.8-10.8)
[2020-05-15 05:46] LABS: ALBUMIN 1.7 g/dL (3.5-5.0); BILIRUBIN,TOTAL 0.4 mg/dL (0.2-1.0); CREATININE 3.2 mg/dL (0.5-1.5); POTASSIUM 3.6 mmol/L (3.5-5.1); TOTAL PROTEIN, SERUM 7.1 g/dL (6.0-8.3)
[2020-05-15] MEDS: LEVOTHYROXINE 25 MCG TABLET PO SCH (06:06)
[2020-05-15] MEDS: INSULIN HUMULIN R 100 UNIT/ML 3ML SQ SCH ×2 (07:30→11:30)
[2020-05-15] MEDS: VITAMIN D3 PO SCH (09:00)
[2020-05-15] MEDS: ASPIRIN 81 MG EC TAB PO SCH (09:00)
[2020-05-15] MEDS: GABAPENTIN 100 MG CAPSULE PO SCH ×2 (09:01→14:54)
[2020-05-15] MEDS: METOPROLOL SUCCINATE 50 MG TAB.SR.24H PO SCH (09:01)
[2020-05-15] MEDS: GABAPENTIN 300 MG CAPSULE PO SCH ×2 (09:01→14:54)
[2020-05-15 09:08] VITALS: BP 143/74
[2020-05-15] MEDS ORDERED: LIDOCAINE HCL 1% MDV 50ML VIAL ONE (10:30)
[2020-05-15] MEDS ORDERED: HEPARIN 1,000 UNIT VIAL ONE (10:30)
[2020-05-15] MEDS: VANCOMYCIN 1G 1.25 GM in 0.9% NACL 250ML 250 ML IV SCH (14:54)
[2020-05-15] MEDS: HEPARIN 5,000 UNIT VIAL IJ PRN (16:02)
== END 2020-05-15 18:30 | disposition home or self-care (01) | DRG 474 ==
LOC: EDH 15:14 → EDHIP 15:49 → 3BH 21:55
PROVIDERS: ADMIT Family Medicine; ATTEND Family Medicine
PROC: 5A1D70Z Performance of Urinary Filtration, Intermittent, Less than 6 Hours Per Day (ICD-10-PCS; 2020-05-01)
PROC: 04CP3ZZ Extirpation of Matter from Right Anterior Tibial Artery, Percutaneous Approach (ICD-10-PCS; 2020-05-02)
PROC: 04FP3ZZ Fragmentation of Right Anterior Tibial Artery, Percutaneous Approach (ICD-10-PCS; 2020-05-02)
PROC: B41D1ZZ Fluoroscopy of Aorta and Bilateral Lower Extremity Arteries using Low Osmolar Contrast (ICD-10-PCS; 2020-05-02)
PROC: 02PAX3Z Removal of Infusion Device from Heart, External Approach (ICD-10-PCS; 2020-05-02)
PROC: 05HM33Z Insertion of Infusion Device into Right Internal Jugular Vein, Percutaneous Approach (ICD-10-PCS; 2020-05-02)
PROC: B543ZZA Ultrasonography of Right Jugular Veins, Guidance (ICD-10-PCS; 2020-05-02)
PROC: 5A1D70Z Performance of Urinary Filtration, Intermittent, Less than 6 Hours Per Day (ICD-10-PCS; 2020-05-03)
PROC: 0Y6M0ZB Detachment at Right Foot, Partial 2nd Ray, Open Approach (ICD-10-PCS; 2020-05-04)
PROC: 0Y6M0ZC Detachment at Right Foot, Partial 3rd Ray, Open Approach (ICD-10-PCS; 2020-05-04)
PROC: 0Y6M0ZD Detachment at Right Foot, Partial 4th Ray, Open Approach (ICD-10-PCS; 2020-05-04)
PROC: 0Y6M0ZF Detachment at Right Foot, Partial 5th Ray, Open Approach (ICD-10-PCS; 2020-05-04)
PROC: 0QTL0ZZ Resection of Right Tarsal, Open Approach (ICD-10-PCS; 2020-05-04)
PROC: 0Y6M0Z9 Detachment at Right Foot, Partial 1st Ray, Open Approach (ICD-10-PCS; principal; 2020-05-04 09:15)
PROC: 5A1D70Z Performance of Urinary Filtration, Intermittent, Less than 6 Hours Per Day (ICD-10-PCS; 2020-05-06)
PROC: 5A1D70Z Performance of Urinary Filtration, Intermittent, Less than 6 Hours Per Day (ICD-10-PCS; 2020-05-08)
PROC: 5A1D70Z Performance of Urinary Filtration, Intermittent, Less than 6 Hours Per Day (ICD-10-PCS; 2020-05-10)
PROC: 0JH63XZ Insertion of Tunneled Vascular Access Device into Chest Subcutaneous Tissue and Fascia, Percutaneous Approach (ICD-10-PCS; 2020-05-10)
PROC: 02H633Z Insertion of Infusion Device into Right Atrium, Percutaneous Approach (ICD-10-PCS; 2020-05-10)
PROC: B548ZZA Ultrasonography of Superior Vena Cava, Guidance (ICD-10-PCS; 2020-05-10)
PROC: 30233N1 Transfusion of Nonautologous Red Blood Cells into Peripheral Vein, Percutaneous Approach (ICD-10-PCS; 2020-05-12)
PROC: 5A1D70Z Performance of Urinary Filtration, Intermittent, Less than 6 Hours Per Day (ICD-10-PCS; 2020-05-13)
PROC: 02H633Z Insertion of Infusion Device into Right Atrium, Percutaneous Approach (ICD-10-PCS; 2020-05-15)
PROC: 5A1D70Z Performance of Urinary Filtration, Intermittent, Less than 6 Hours Per Day (ICD-10-PCS; 2020-05-15)
PROC: B5181ZA Fluoroscopy of Superior Vena Cava using Low Osmolar Contrast, Guidance (ICD-10-PCS; 2020-05-15)
PROC: B548ZZA Ultrasonography of Superior Vena Cava, Guidance (ICD-10-PCS; 2020-05-15)
DX: T87.43 Infection of amputation stump, right lower extremity (principal); A41.01 Sepsis due to Methicillin susceptible Staphylococcus aureus; N18.6 End stage renal disease; J18.9 Pneumonia, unspecified organism; L03.115 Cellulitis of right lower limb; I12.0 Hypertensive chronic kidney disease with stage 5 chronic kidney disease or end stage renal disease; L02.611 Cutaneous abscess of right foot; E44.1 Mild protein-calorie malnutrition; D62 Acute posthemorrhagic anemia; E11.52 Type 2 diabetes mellitus with diabetic peripheral angiopathy with gangrene; T82.7XXA Infection and inflammatory reaction due to other cardiac and vascular devices, implants and grafts, initial encounter; M86.8X7 Other osteomyelitis, ankle and foot; T87.89 Other complications of amputation stump; E11.621 Type 2 diabetes mellitus with foot ulcer; L97.519 Non-pressure chronic ulcer of other part of right foot with unspecified severity; E11.22 Type 2 diabetes mellitus with diabetic chronic kidney disease; E11.69 Type 2 diabetes mellitus with other specified complication; E78.5 Hyperlipidemia, unspecified; E87.6 Hypokalemia; Y83.5 Amputation of limb(s) as the cause of abnormal reaction of the patient, or of later complication, without mention of misadventure at the time of the procedure; E66.01 Morbid (severe) obesity due to excess calories; E11.51 Type 2 diabetes mellitus with diabetic peripheral angiopathy without gangrene; E03.9 Hypothyroidism, unspecified; Z20.822 Contact with and (suspected) exposure to COVID-19; I25.10 Atherosclerotic heart disease of native coronary artery without angina pectoris; Y84.8 Other medical procedures as the cause of abnormal reaction of the patient, or of later complication, without mention of misadventure at the time of the procedure; Z68.28 Body mass index [BMI] 28.0-28.9, adult; Z88.8 Allergy status to other drugs, medicaments and biological substances; Z79.02 Long term (current) use of antithrombotics/antiplatelets; Z95.1 Presence of aortocoronary bypass graft; Z99.2 Dependence on renal dialysis; Z83.3 Family history of diabetes mellitus; Y84.1 Kidney dialysis as the cause of abnormal reaction of the patient, or of later complication, without mention of misadventure at the time of the procedure; Y92.89 Other specified places as the place of occurrence of the external cause; Y83.8 Other surgical procedures as the cause of abnormal reaction of the patient, or of later complication, without mention of misadventure at the time of the procedure; Y82.8 Other medical devices associated with adverse incidents; Y92.9 Unspecified place or not applicable
CPT/HCPCS: 36415; 36556; 36558; 36589; 73630; 73718; 75710; 77001; 80048; 80053; 80069; 80202; 82040; 82948; 83605; 84132; 85014; 85018; 85025; 85027; 85347; 85610; 85730; 86701; 86704; 86706; 86850; 86900; 86901; 86923; 87040; 87070; 87076; 87077; 87186; 87205; 87340; 87390; 87520; 87804; 88304; 88311; 90935; 93306; 93356; 93925; 97039; 99156; 99157; C1750; C1752; C1760; C1769; C1893; C1894; C9774; G0378; J1200; J1644; J1815; J2250; J2543; J3010; J3370; J3490; J7030; J7050; P9016; Q9967; U0003

== ENCOUNTER 2022-10-21 12:52 | Emergency (ER) | payer OTHER ==
[~2022-10-21] VITALS: Ht 165.1 cm; Wt 85.3 kg
[~2022-10-21 12:52] MED LIST: AEC81 PO; CHOL500045 PO; CLOP75TA32 PO; FURO80TA3 PO; GABA-533 PO; HYDR-4153 PO; LEVO25CA4 PO; METO-408 PO; ROSU20TA73 PO; TEMA30CA PO
[2022-10-21 13:20] LABS: BASOPHILS % (AUTO) 0.4 % (0.0-5.0); EOSINOPHILS % (AUTO) 2.7 % (0.0-8.0); HEMATOCRIT 37.8 % (42-54); LYMPHOCYTES % (AUTO) 21.5 % (21.0-51.0); MEAN CORPUSCULAR HEMOGLOBIN 33.3 pg (27.0-33.0); MEAN CORPUSCULAR HGB CONC 32.8 g/dL (32.0-36.0); MEAN CORPUSCULAR VOLUME 101.6 fL (79-99); MONOCYTES % (AUTO) 6.2 % (3.0-13.0); PLATELET COUNT (AUTO) 106 K/uL (130-400); RED BLOOD CELL COUNT(AUTO) 3.72 MIL/uL (4.50-6.20); RED CELL DISTRIBUTION WIDTH 13.2 % (11.0-15.5); WHITE BLOOD COUNT (AUTO) 4.5 K/uL (4.8-10.8)
[2022-10-21 13:27] LABS: CREATININE 5.7 mg/dL (0.5-1.5); POTASSIUM 4.6 mmol/L (3.5-5.1)
[2022-10-21 13:32] LABS: ALBUMIN 2.9 g/dL (3.5-5.0); TOTAL PROTEIN, SERUM 7.1 g/dL (6.0-8.3)
[2022-10-21 15:59] VITALS: BP 149/77; PULSE 78; RESP 18; O2SAT 99
== END 2022-10-21 16:32 | disposition home or self-care (01) ==
LOC: EDH 12:52
DX: E13.621 Other specified diabetes mellitus with foot ulcer (principal); L97.519 Non-pressure chronic ulcer of other part of right foot with unspecified severity; E78.00 Pure hypercholesterolemia, unspecified; I12.0 Hypertensive chronic kidney disease with stage 5 chronic kidney disease or end stage renal disease; N18.6 End stage renal disease; Z99.2 Dependence on renal dialysis; Z79.02 Long term (current) use of antithrombotics/antiplatelets; Z79.82 Long term (current) use of aspirin; Z79.899 Other long term (current) drug therapy; Z88.5 Allergy status to narcotic agent; Z88.8 Allergy status to other drugs, medicaments and biological substances; Z95.1 Presence of aortocoronary bypass graft
CPT/HCPCS: 36415; 73620; 80053; 85025